=== PATIENT | female | born 1960 | race Caucasian/White ===

== ENCOUNTER 2016-06-06 06:27 | Day surgery (SDC) | payer BC, OTHER ==
[~2016-06-06 06:27] MED LIST: Buffered Lidocaine 1% SYR 3ML* 3 ML/SYR SYRINGE INTRADERM ONE
[2016-06-06] MEDS ORDERED: ceFAZolin 2 GM PREMIX (*) 2 GM/50 ML BAG IVPB ONE (06:41)
[2016-06-06] MEDS ORDERED: Bupivacaine 0.25% SDV* 30 ML ONE (07:16)
[2016-06-06] MEDS ORDERED: fentaNYL* 50 MCG/ML 2 ML VIAL (100 MCG VIAL) ONE (07:40)
[2016-06-06] MEDS ORDERED: Midazolam* 1 MG/ML 5 ML VIAL (5 MG) ONE (07:41)
[2016-06-06] MEDS ORDERED: Propofol* 10 MG/ML 20 ML BTL IV PUSH ONE (08:03)
[2016-06-06 09:27] VITALS: BP 114/68
== END 2016-06-06 09:22 | disposition home or self-care (01) ==
LOC: OREAST 06:27
PROVIDERS: ATTEND Plastic Surgery
DX: M65.312 Trigger thumb, left thumb (principal); Z88.2 Allergy status to sulfonamides
CPT/HCPCS: J0690; J2250; J2704; J3010

== ENCOUNTER 2016-07-31 16:56 | Emergency (ER) | payer BC ==
[2016-07-31 19:16] VITALS: BP 135/80
--- NOTE | 2016-07-31 19:46 | UC ---
Respiratory Complaint HPI - HPI Summary HPI Summary: few days of nasal congestion, scratchy throat and cough, no fevers---coughing so hard it hurts her lower back---no radiation in to legs - History of Current Complaint Chief Complaint: UCBackPain Stated Complaint: COUGH,CONGESTION Time Seen by Provider: 07/31/16 19:45 Hx Obtained From: Patient Hx Last Menstrual Period: 2 yrs ?: No Onset/Duration: Gradual Onset, Lasting Days, Still Present Timing: Constant Severity Initially: Moderate Severity Currently: Moderate Character: Cough: Nonproductive Aggravating Factors: Nothing Alleviating Factors: Nothing - has helped for the cough however naproxen/ flexeril or flexaril /ultram provides good relief Associated Signs And Symptoms: Positive: Nasal Congestion - Allergies/Home Medications Allergies/Adverse Reactions: Allergies Allergy/AdvReac Type Severity Reaction Status Date / Time Diatrizoate [From Renografin] Allergy Severe Anaphylatic Verified 07/31/16 19:16 Shock Sulfa Drugs Allergy Intermediate Itching Verified 07/31/16 19:16 Home Medications: Home Medications Acetaminophen [Acetaminophen Extra Stren] 1,000 mg PO DAILY 07/31/16 [History Confirmed 07/31/16] PMH/Surg Hx/FS Hx/Imm Hx Previously Healthy: No Endocrine History Of: 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 Denies: Thyroid Disease, Hyperthyroidism, Hypothyroidism Cardiovascular History Of: Reports: Hypertension Denies: Cardiac Disorders, Pacemaker/ICD, Congestive Heart Failure, Deep Vein Thrombosis Respiratory History Of: Reports: Pneumonia Denies: COPD, Asthma, Bronchitis, Pulmonary Embolism GI/ History Of: Denies: Ulcer, Gastrointestinal Bleed, Gall Bladder Disease, Kidney Stones Neurological History Of: Denies: TIA, CVA, Dementia, Seizures Comment Only: Migraine - HX, none recently since changed jobs Psychological History Of: Denies: Anxiety, Depression, Bipolar Disorder, Schizophrenia Cancer History Of: Denies: Lung Cancer Other History Of: Negative For: Anticoagulant Therapy - Surgical History Surgical History: Yes Surgery Procedure, Year, and Place: 2 C-SECTIONS ; 1991 TUBAL LIGATION;. TONSILLECTOMY AND ADENOIDS IN 1963;. LEFT FOREARM LACERATION - (AGE 17). Right thumb trigger release 2015 - Family History Known Family History: Positive: Hypertension - Social History Occupation: Employed Full-time Lives: With Family Alcohol Use: Rare Substance Use Type: None Smoking Status (MU): Former Smoker Type: Cigarettes Length of Time of Smoking/Using Tobacco: 2 years Have You Smoked in the Last Year: No When Did the Patient Quit Smoking/Using Tobacco: 03/31/1982 - Immunization History Most Recent Influenza Vaccination: [id number] Most Recent Tetanus Shot: within last 10 years Most Recent Pneumonia Vaccination: had in last 5 years Review of Systems Constitutional: Negative Skin: Negative Eyes: Negative ENT: Sore Throat, Nasal Discharge Respiratory: Cough Cardiovascular: Negative Gastrointestinal: Negative Genitourinary: Negative Motor: Negative Neurovascular: Negative Musculoskeletal: Myalgia - lumbar/sacral area of back--- Neurological: Negative Psychological: Negative All Other Systems Reviewed And Are Negative: Yes Physical Exam Triage Information Reviewed: Yes Appearance: Well-Appearing, No Pain Distress, Well-Nourished Vital Signs: Initial Vital Signs Temp 97.5 F 07/31/16 19:12 Pulse 72 07/31/16 19:12 Resp 18 07/31/16 19:12 BP 135/80 07/31/16 19:12 Pulse Ox 100 07/31/16 19:12 Vital Signs Reviewed: Yes Eye Exam: Normal Eyes: Positive: Conjunctiva Clear ENT Exam: Normal ENT: Positive: Normal ENT inspection, Hearing grossly normal, Pharynx normal, Nasal congestion, Nasal drainage, TMs normal. Negative: Tonsillar swelling, Tonsillar exudate, Trismus, Muffled/hoarse voice Dental Exam: Normal Neck exam: Normal Neck: Positive: Supple, Nontender Respiratory Exam: Normal Respiratory: Positive: Chest non-tender, Lungs clear, Normal breath sounds, No respiratory distress, No accessory muscle use Cardiovascular Exam: Normal Cardiovascular: Positive: Pulses Normal, Brisk Capillary Refill Abdomen Description: Negative: CVA Tenderness (R), CVA Tenderness (L) Musculoskeletal Exam: Normal Musculoskeletal: Positive: Strength Intact, No Edema, ROM Limited @ Neurological Exam: Normal Neurological: Positive: Alert, Muscle Tone Normal Psychological Exam: Normal Skin Exam: Normal UC Diagnostic Evaluation - Laboratory O2 Sat by Pulse Oximetry: 100 Respiratory Course/Dx - Course Course Of Treatment: 1. zyrtec, albuterol, flonase for respiratory sx, zithmax if sx worsen fever 2. flexeril, naproxen, ultram and exercoise for back Follow with Dr. Trinidad - Differential Dx/Diagnosis Differential Diagnosis/HQI/PQRI: Bronchitis, Lower Resp Infection, Sinusitis Provider Diagnoses: Allergic Rhinnitis, Bronchospastic cough, acute low back pain Discharge - Discharge Plan Condition: Stable Disposition: HOME Prescriptions: Albuterol HFA INHALER* [Ventolin HFA Inhaler*] 2 puff INH Q4H PRN #1 mdi PRN Reason: Cough Azithromycin TAB* [Zithromax TAB (Z-[place]) 250 mg #6 tabs] 2 tab PO SEE INSTRUCTIONS #1 [place] Cyclobenzaprine TAB* [Flexeril 10 MG TAB*] 10 mg PO TID PRN #30 tab PRN Reason: back pain Fluticasone NASAL SPRAY 50MCG* [Flonase NASAL SPRAY 50MCG*] 2 spray BOTH NARES DAILY #1 btl Patient Education Materials: Acute Low Back Pain (ED), Lower Back Exercises (ED ), Core Strengthening Exercises (ED), Acute Cough (ED), Allergic Rhinitis (ED) Referrals: Jadiel Trinidad MD [Primary Care Provider] - If Needed
== END 2016-07-31 19:49 | disposition home or self-care (01) ==
LOC: UCCORT 16:56
DX: J30.9 Allergic rhinitis, unspecified (principal); R05 Cough; M54.5 Low back pain; E11.9 Type 2 diabetes mellitus without complications; Z79.4 Long term (current) use of insulin; I10 Essential (primary) hypertension; Z88.2 Allergy status to sulfonamides; Z87.891 Personal history of nicotine dependence
CPT/HCPCS: 99212; G0463

== ENCOUNTER 2017-04-18 19:10 | Emergency (ER) | payer BC ==
[2017-04-18 20:06] VITALS: BP 129/60
[2017-04-18] MEDS ORDERED: Levalbuterol 0.63MG/3ML NEB* UNIT OF USE INH ONE (20:15)
--- NOTE | 2017-04-18 20:24 | UC ---
Respiratory Complaint HPI - HPI Summary HPI Summary: Pt presents with c/o cough, chest congestion and generalized malaise X 3-4 days. - History of Current Complaint Chief Complaint: UCRespiratory Stated Complaint: COUGH,CONGESTION Time Seen by Provider: 04/18/17 19:56 Hx Obtained From: Patient Hx Last Menstrual Period: 2 yrs ?: No Onset/Duration: Sudden Onset, Lasting Days, Still Present, Worse Since - onset Timing: Constant Severity Initially: Mild Severity Currently: Moderate Character: Cough: Nonproductive Aggravating Factors: Exertion, Deep Breaths, Recumbent Position Alleviating Factors: Nothing Associated Signs And Symptoms: Positive: Chills, Wheezing - Risk Factors Pulmonary Embolism Risk Factors: Negative Cardiac Risk Factors: Diabetes Pseudomonas Risk Factors: Negative Tuberculosis Risk Factors: Negative - Allergies/Home Medications Allergies/Adverse Reactions: Allergies Allergy/AdvReac Type Severity Reaction Status Date / Time Diatrizoate [From Renografin] Allergy Severe Anaphylatic Verified 04/18/17 19:59 Shock Iodinated Diagnostic Agents Allergy Severe Anaphylatic Verified 04/18/17 19:59 Shock Sulfa Drugs Allergy Intermediate Itching Verified 04/18/17 19:59 PMH/Surg Hx/FS Hx/Imm Hx Previously Healthy: Yes Endocrine History: Diabetes Other History Of: Negative For: Anticoagulant Therapy - Surgical History Surgical History: Yes Surgery Procedure, Year, and Place: 2 C-SECTIONS ; 1991 TUBAL LIGATION;. TONSILLECTOMY AND ADENOIDS IN 1963;. LEFT FOREARM LACERATION - (AGE 17). Right thumb trigger release 2016. eye surgery-12/2016 - Family History Known Family History: Positive: Hypertension - Social History Occupation: Employed Full-time Lives: With Family Alcohol Use: Rare Substance Use Type: None Smoking Status (MU): Former Smoker Type: Cigarettes Length of Time of Smoking/Using Tobacco: 2 years Have You Smoked in the Last Year: No When Did the Patient Quit Smoking/Using Tobacco: 03/31/1982 - Immunization History Most Recent Influenza Vaccination: [id number] Most Recent Tetanus Shot: within last 10 years Most Recent Pneumonia Vaccination: had in last 5 years Review of Systems Constitutional: Chills, Fatigue Skin: Negative Eyes: Negative ENT: Negative Respiratory: Shortness Of Breath, Cough Cardiovascular: Negative Gastrointestinal: Negative Genitourinary: Negative Motor: Negative Neurovascular: Negative Musculoskeletal: Myalgia Neurological: Negative Psychological: Negative Is Patient Immunocompromised?: No All Other Systems Reviewed And Are Negative: Yes Physical Exam Triage Information Reviewed: Yes Appearance: Ill-Appearing Vital Signs: Initial Vital Signs Temp 98.5 F 04/18/17 20:02 Pulse 81 04/18/17 20:02 Resp 20 04/18/17 20:02 BP 129/60 04/18/17 20:02 Pulse Ox 100 04/18/17 20:02 Vital Signs Reviewed: Yes Eye Exam: Normal ENT Exam: Normal Dental Exam: Normal Neck exam: Normal Respiratory Exam: Other Respiratory: Positive: Wheezing Cardiovascular Exam: Normal Musculoskeletal Exam: Normal Neurological Exam: Normal Psychological Exam: Normal Skin Exam: Normal UC Diagnostic Evaluation - Laboratory O2 Sat by Pulse Oximetry: 100 Respiratory Course/Dx - Differential Dx/Diagnosis Differential Diagnosis/HQI/PQRI: Bronchitis, Other - pneumonia Provider Diagnoses: Influenza A. Bronchitis Discharge - Discharge Plan Condition: Stable Disposition: HOME Patient Education Materials: Influenza (ED), Acute Bronchitis (ED) Referrals: Jadiel Trinidad MD [Primary Care Provider] -
[2017-04-18] MEDS ORDERED: Azithromycin TAB* 250 MG PO ONE (20:32)
[2017-04-18] MEDS ORDERED: Oseltamivir CAP* 75 MG PO ONE (20:32)
[2017-04-18] MEDS ORDERED: Benzonatate CAP* 100 MG PO ONE (20:32)
--- NOTE | 2017-04-18 20:42 | RAD ---
INDICATION: Cough, shortness of breath and fatigue COMPARISON: Chest x-ray dated February 16, 2015 TECHNIQUE: PA and lateral views of the chest were obtained. FINDINGS: The heart and mediastinum are normal in size and contour. The lungs are grossly clear. There is no evidence of large pleural effusion. Visualized bones are normal for the patient's age. There is no radiographic evidence of free air beneath the diaphragm IMPRESSION: No radiographic evidence of acute cardiopulmonary disease.
== END 2017-04-18 21:15 | disposition home or self-care (01) ==
LOC: UCCORT 19:10
DX: J10.1 Influenza due to other identified influenza virus with other respiratory manifestations (principal); J40 Bronchitis, not specified as acute or chronic; E11.9 Type 2 diabetes mellitus without complications; R11.0 Nausea; Z88.8 Allergy status to other drugs, medicaments and biological substances; Z88.2 Allergy status to sulfonamides; Z91.041 Radiographic dye allergy status; Z87.891 Personal history of nicotine dependence
CPT/HCPCS: 71046; 87502; 99213; A9270-GY; G0463; J7614

== ENCOUNTER 2017-07-27 07:12 | Emergency (ER) | payer BC ==
[2017-07-27 07:26] VITALS: BP 164/78
--- NOTE | 2017-07-27 07:28 | UC ---
FLU HPI - HPI Summary HPI Summary: C/O Flu symptoms x 2 days with sore throat, headache, body aches, chills, cough with wheezing. Had Flu A earlier this season. - History of Current Complaint Stated Complaint: FLU SYMPTOMS Time Seen by Provider: 07/27/17 07:21 Hx Obtained From: Patient Hx Last Menstrual Period: 2 yrs ?: No Onset/Duration: Sudden Onset, Lasting Days - 2, Worse Since - onset Severity Currently: Severe Severity Initially: Moderate Associated Signs & Symptoms: Positive: Fever, Myalgia, Cough, Sore Throat, Nasal Congestion, Headache Related Hx: Possible Flu/Infectious Exposure - Risk Factors Influenza Risk Factors: Chronic Medical or Immunosuppresive Condition - Diabetes and chronic kidney disease - Allergy/Home Medications Allergies/Adverse Reactions: Allergies Allergy/AdvReac Type Severity Reaction Status Date / Time diatrizoate meglumine Allergy Anaphylatic Verified 07/27/17 07:17 [From Renografin-60] Shock diatrizoate sodium Allergy Anaphylatic Verified 07/27/17 07:17 [From Renografin-60] Shock Iodinated Contrast- Oral and Allergy Anaphylatic Verified 07/27/17 07:17 IV Dye Shock Sulfa (Sulfonamide Allergy Itching Verified 07/27/17 07:17 Antibiotics) Home Medications: Home Medications Loratadine 10 mg PO DAILY 07/27/17 [History Confirmed 07/27/17] PMH/Surg Hx/FS Hx/Imm Hx Endocrine History: Diabetes Cardiovascular History: Hypertension Other History Of: Negative For: Anticoagulant Therapy - Surgical History Surgical History: Yes Surgery Procedure, Year, and Place: 2 C-SECTIONS ; 1991 TUBAL LIGATION;. TONSILLECTOMY AND ADENOIDS IN 1963;. LEFT FOREARM LACERATION - (AGE 17). Right thumb trigger release 2016. eye surgery-12/2016 - Family History Known Family History: Positive: Hypertension Negative: Cardiac Disease, Diabetes - Social History Occupation: Employed Full-time Lives: With Family Alcohol Use: Rare Substance Use Type: None Smoking Status (MU): Former Smoker Type: Cigarettes Length of Time of Smoking/Using Tobacco: 2 years Have You Smoked in the Last Year: No When Did the Patient Quit Smoking/Using Tobacco: 03/31/1982 - Immunization History Most Recent Influenza Vaccination: [id number] Most Recent Tetanus Shot: within last 10 years Most Recent Pneumonia Vaccination: had in last 5 years Review of Systems Constitutional: Fever, Chills ENT: Sore Throat, Sinus Congestion, Sinus Pain/Tenderness Respiratory: Cough Gastrointestinal: Nausea Is Patient Immunocompromised?: Yes - Diabetes All Other Systems Reviewed And Are Negative: Yes Physical Exam Triage Information Reviewed: Yes Appearance: No Pain Distress, Well-Nourished, Ill-Appearing Vital Signs Reviewed: Yes Eyes: Positive: Conjunctiva Inflamed ENT: Positive: Pharynx normal, Nasal congestion, TMs normal Dental Exam: Normal Neck exam: Normal Respiratory: Positive: Wheezing - expiratory wheeze with coughing. Negative: Crackles Cardiovascular Exam: Normal Musculoskeletal Exam: Normal Neurological Exam: Normal Psychological Exam: Normal Skin Exam: Normal Flu Course/Dx - Differential Dx/Diagnosis Differential Diagnosis/HQI/PQRI: Bronchitis, Influenza, RSV, Upper Respiratory Infection Provider Diagnoses: Acute URI. Acute bronchospasm. Hypertension Discharge - Sign-Out/Discharge Documenting (check all that apply): Discharge/Admit/Transfer - Discharge Plan Condition: Stable Disposition: HOME Prescriptions: Albuterol HFA INHALER* [Ventolin HFA Inhaler*] 2 puff INH Q4H PRN #1 mdi PRN Reason: Wheezing predniSONE TAB* [Deltasone TAB*] 20 mg PO DAILY #18 tab Patient Education Materials: Upper Respiratory Infection (ED), Wheezing (ED), Prednisone (By mouth) Referrals: Jadiel Trinidad MD [Primary Care Provider] - Additional Instructions: NASAL SPRAYS AND DROPS: Afrin in the PUMP/ MIST bottle (Get generic 12 hours nasal decongestant spray). Tilt your head down and look at the floor while doing a strong sniff with the spray. Decongestant nasal sprays and drops often give dramatic relief from congestion. They are often recommended for patients with sinus infection to assist with sinus drainage. Persons with high blood pressure should consult the doctor before using these nasal sprays. Afrin and Mando-Synephrine are common joou-ipz-fhiodha preparations. They should not be used for more than five days, as "rebound" congestion can occur - - the congestion flares as the drug wears off. A way of dealing with this rebound congestion problem is to medicate only one nostril each time, allowing the other nostril to recover from the medicine' s effects. When you no longer need the drug during the day, spray only one nostril each night. This helps you sleep well without severe rebound congestion. Call the doctor if you develop severe headache, palpitations, or chest pain. Metacafe SINUS RINSE: CHECK OUT AT [facility] Saline nasal wash helps with mucous, allergies and congestion. It can be used up to twice a day or only as needed. Use lukewarm tap water. It does not have to be sterilized or distilled water. Do 1/3 on each side and snort out of both nostrils. Repeat the process with 1/6 of the bottle on each side with snorting in between to finish the solution in the bottle - Billing Disposition and Condition Condition: STABLE Disposition: HOME
== END 2017-07-27 07:55 | disposition home or self-care (01) ==
LOC: UCCORT 07:12
DX: J06.9 Acute upper respiratory infection, unspecified (principal); J98.01 Acute bronchospasm; I10 Essential (primary) hypertension; Z87.891 Personal history of nicotine dependence; Z88.8 Allergy status to other drugs, medicaments and biological substances; Z88.2 Allergy status to sulfonamides; Z91.041 Radiographic dye allergy status
CPT/HCPCS: 87502; 99212; G0463

== ENCOUNTER 2017-08-01 18:45 | Emergency (ER) | payer BC ==
[2017-08-01 19:56] VITALS: BP 128/70
--- NOTE | 2017-08-01 21:07 | UC ---
Respiratory Complaint HPI - HPI Summary HPI Summary: Brenda seen last week for resp distress and cough. she has been suing xoponex neb w/ good help but still has very significant cough w/ wheezing. she did not take the prscribed prednisone b/c she had DKA on 2 occasions from taking prednisone in past (has type I DM). sugars have been stable recently. she is not on steroid inhaler but she is interested after discussing today. - History of Current Complaint Chief Complaint: UCRespiratory Stated Complaint: RESPIRATORY Time Seen by Provider: 08/01/17 20:47 Hx Last Menstrual Period: 2 yrs Pain Intensity: 0 - Allergies/Home Medications Allergies/Adverse Reactions: Allergies Allergy/AdvReac Type Severity Reaction Status Date / Time diatrizoate meglumine Allergy Anaphylatic Verified 07/27/17 07:17 [From Renografin-60] Shock diatrizoate sodium Allergy Anaphylatic Verified 07/27/17 07:17 [From Renografin-60] Shock Iodinated Contrast- Oral and Allergy Anaphylatic Verified 07/27/17 07:17 IV Dye Shock Sulfa (Sulfonamide Allergy Itching Verified 07/27/17 07:17 Antibiotics) PMH/Surg Hx/FS Hx/Imm Hx Endocrine History: Diabetes Cardiovascular History: Hypertension Respiratory History: Bronchitis Other History Of: Negative For: Anticoagulant Therapy - Surgical History Surgical History: Yes Surgery Procedure, Year, and Place: 2 C-SECTIONS ; 1991 TUBAL LIGATION;. TONSILLECTOMY AND ADENOIDS IN 1963;. LEFT FOREARM LACERATION - (AGE 17). Right thumb trigger release 2016. LEFT THUMB TRIGGER RELEASE 2017. LEFT eye VICTRECTOMY-12/2016. BILATERAL CATARACTS 2018. RIGHT EYE VICTRECTOMY 2018 - Family History Known Family History: Positive: Hypertension Negative: Cardiac Disease, Diabetes - Social History Alcohol Use: Rare Substance Use Type: None Smoking Status (MU): Former Smoker Type: Cigarettes Length of Time of Smoking/Using Tobacco: 2 years Have You Smoked in the Last Year: No When Did the Patient Quit Smoking/Using Tobacco: 03/31/1982 - Immunization History Most Recent Influenza Vaccination: [id number] Most Recent Tetanus Shot: within last 10 years Most Recent Pneumonia Vaccination: had in last 5 years Review of Systems Constitutional: Negative Skin: Negative Eyes: Negative ENT: Negative Respiratory: Cough - severe Cardiovascular: Negative Gastrointestinal: Negative Genitourinary: Negative Motor: Negative Neurovascular: Negative Musculoskeletal: Negative Neurological: Negative Psychological: Negative Is Patient Immunocompromised?: No All Other Systems Reviewed And Are Negative: Yes Physical Exam Triage Information Reviewed: Yes Appearance: Well-Appearing, No Pain Distress, Well-Nourished - she has severe enough cough that she can be heard quite loudly across the buidling. Vital Signs: Initial Vital Signs Temp 98.2 F 08/01/17 19:45 Pulse 92 08/01/17 19:45 Resp 18 08/01/17 19:45 BP 128/70 08/01/17 19:45 Pulse Ox 100 08/01/17 19:45 Vital Signs Reviewed: Yes Eye Exam: Normal ENT Exam: Normal ENT: Positive: Pharynx normal, TMs normal Neck exam: Normal Neck: Positive: Supple, Nontender, No Lymphadenopathy Respiratory: Positive: No respiratory distress, No accessory muscle use, Decreased breath sounds - mild thoughout, Wheezing - ? mild. Negative: Crackles , Rhonchi, Stridor Cardiovascular Exam: Normal Cardiovascular: Positive: RRR Musculoskeletal Exam: Normal Neurological Exam: Normal Psychological Exam: Normal Skin Exam: Normal UC Diagnostic Evaluation - Laboratory O2 Sat by Pulse Oximetry: 100 Respiratory Course/Dx - Course Course Of Treatment: pesistent bronchitis w/ severe cough. unable to take oral pred. she is willing to try lower dose steroid inahler. she is very agreeable to checking BSs very closley and stop immediately with elevaetd readings. risne mouth. -tessalon perles. cont w/ xoponex. - Differential Dx/Diagnosis Differential Diagnosis/HQI/PQRI: Asthma, Bronchitis, Sinusitis Provider Diagnoses: Bronchitis Discharge - Sign-Out/Discharge Documenting (check all that apply): Post-Discharge Follow Up - Discharge Plan Condition: Stable Disposition: HOME Prescriptions: Benzonatate CAP* [Tessalon 100 MG CAP*] 100 mg PO TID PRN #30 cap PRN Reason: Cough Budesonide/Formote 80/4.5(NF) [Symbicort 80/4.5 (NF)] 1 puff INH BID #1 mdi Levalbuterol 0.63MG/3ML NEB* [Xopenex 0.63MG/3ML NEB*] 0.63 mg INH Q4H PRN #1 box PRN Reason: Sob/Wheezing Patient Education Materials: Acute Bronchitis (ED) Referrals: Law,Jadiel, MD [Primary Care Provider] - Additional Instructions: -Make sure to watch your blood sugars very closely with the steroid inhaler. stop it immediately at any sign of increase. Rinse your mouth out well after use. - Billing Disposition and Condition Condition: STABLE Disposition: HOME
== END 2017-08-01 21:45 | disposition home or self-care (01) ==
LOC: UCCORT 18:45
DX: J40 Bronchitis, not specified as acute or chronic (principal); E11.9 Type 2 diabetes mellitus without complications; Z96.41 Presence of insulin pump (external) (internal); I10 Essential (primary) hypertension; Z87.891 Personal history of nicotine dependence; Z88.2 Allergy status to sulfonamides; Z88.8 Allergy status to other drugs, medicaments and biological substances; Z91.041 Radiographic dye allergy status
CPT/HCPCS: 99212; G0463

== ENCOUNTER 2018-03-06 14:02 | Emergency (ER) | payer BC ==
[2018-03-06] MEDS ORDERED: Triamcinolone Acetonide* 40 MG/ML 1 ML VIAL IM ONE (14:37)
[2018-03-06 14:38] VITALS: BP 139/66
[2018-03-06] MEDS ORDERED: Lidocaine 1%* 5 ML VIAL INJ ONE (14:39)
--- NOTE | 2018-03-06 14:54 | UC ---
Elbow Pain - HPI Summary HPI Summary: right elbow pain x 5 days pain is a the lateral side of the elbow , + injury as her dog pulled on the leash , hx of tennis elbow - History of Current Complaint Chief Complaint: UCUpperExtremity Stated Complaint: RIGHT ELBOW PAIN Time Seen by Provider: 03/06/18 14:17 Hx Obtained From: Patient Hx Last Menstrual Period: 2 yrs Onset/Duration: Days - 5 Severity Initially: Moderate Severity Currently: Moderate Pain Intensity: 3 Location Of Pain: Is Discrete @ - right elbow Character: Aching, Throbbing Aggravating Factor(s): Movement Alleviating Factor(s): Rest, Ice Associated Signs And Symptoms: Positive: Weakness. Negative: Swelling, Redness , Bruising, Fever, Numbness/Tingling Related History: Similar Episode/Dx as - tennis elbow - Allergies/Home Medications Allergies/Adverse Reactions: Allergies Allergy/AdvReac Type Severity Reaction Status Date / Time diatrizoate meglumine Allergy Anaphylatic Verified 03/06/18 14:31 [From Renografin-60] Shock diatrizoate sodium Allergy Anaphylatic Verified 03/06/18 14:31 [From Renografin-60] Shock Iodinated Contrast- Oral and Allergy Anaphylatic Verified 03/06/18 14:31 IV Dye Shock Sulfa (Sulfonamide Allergy Itching Verified 03/06/18 14:31 Antibiotics) Home Medications: Home Medications Irbesartan (NF) [Avapro (NF)] 150 mg PO DAILY 03/06/18 [History Confirmed ] PMH/Surg Hx/FS Hx/Imm Hx Endocrine History: Diabetes Cardiovascular History: Hypertension Other History Of: Negative For: Anticoagulant Therapy - Surgical History Surgical History: Yes Surgery Procedure, Year, and Place: 2 C-SECTIONS ; 1991 TUBAL LIGATION;. TONSILLECTOMY AND ADENOIDS IN 1963;. LEFT FOREARM LACERATION - (AGE 17). Right thumb trigger release 2016. LEFT THUMB TRIGGER RELEASE 2017. LEFT eye VICTRECTOMY-12/2016. BILATERAL CATARACTS 2018. RIGHT EYE VICTRECTOMY 2018 - Family History Known Family History: Positive: Hypertension Negative: Cardiac Disease, Diabetes - Social History Alcohol Use: Rare Substance Use Type: None Smoking Status (MU): Former Smoker Type: Cigarettes Length of Time of Smoking/Using Tobacco: 2 years Have You Smoked in the Last Year: No When Did the Patient Quit Smoking/Using Tobacco: 03/31/1982 - Immunization History Most Recent Influenza Vaccination: [id number] Most Recent Tetanus Shot: within last 10 years Most Recent Pneumonia Vaccination: had in last 5 years Review of Systems All Other Systems Reviewed And Are Negative: Yes Constitutional: Positive: Negative Skin: Positive: Negative Eyes: Positive: Negative ENT: Positive: Negative Respiratory: Positive: Negative Is Patient Immunocompromised?: No Physical Exam Triage Information Reviewed: Yes Appearance: Well-Appearing, No Pain Distress, Well-Nourished Vital Signs: Initial Vital Signs Temp 98 F 03/06/18 14:30 Pulse 82 03/06/18 14:30 Resp 16 03/06/18 14:30 BP 139/66 03/06/18 14:30 Pulse Ox 100 03/06/18 14:30 Vital Signs Reviewed: Yes Eye Exam: Normal Eyes: Positive: Conjunctiva Clear ENT: Positive: Normal ENT inspection Neck exam: Normal Neck: Positive: Supple Respiratory: Positive: Chest non-tender, Lungs clear, Normal breath sounds Cardiovascular: Positive: RRR, No Murmur, Pulses Normal Musculoskeletal: Positive: Other: - right elbow : no swelling, no erythema, tenderness lateral elbow , goot ROM Skin Exam: Normal Procedures - Procedure Summary Procedure Summary: steroid injection right lateral elbow the area was cleaned with alcohol pads 40 mg kenelog + 5 ml 1 % lidocaine mixture injected to the lateral right elbow pt. tolerated the procedure will, no bleeding Elbow Pain Course/Dx - Differential Dx/Diagnosis Provider Diagnosis: Lateral epicondylitis Discharge - Sign-Out/Discharge Documenting (check all that apply): Patient Departure All imaging exams completed and their final reports reviewed: No Studies - Discharge Plan Condition: Stable Disposition: HOME Patient Education Materials: Tennis Elbow (ED) Referrals: Jadiel Trinidad MD [Primary Care Provider] - 2 Weeks - Billing Disposition and Condition Condition: STABLE Disposition: Home
== END 2018-03-06 15:08 | disposition home or self-care (01) ==
LOC: UCCORT 14:02
DX: M77.11 Lateral epicondylitis, right elbow (principal); Y93.K1 Activity, walking an animal; Z88.2 Allergy status to sulfonamides; Z91.041 Radiographic dye allergy status; I10 Essential (primary) hypertension; E11.9 Type 2 diabetes mellitus without complications; Z87.891 Personal history of nicotine dependence
CPT/HCPCS: 99211; G0463; J3301

== ENCOUNTER 2019-04-06 05:54 | Day surgery (SDC) | payer BC ==
[~2019-04-06 05:54] MED LIST changes: -Buffered Lidocaine 1% SYR 3ML* 3 ML/SYR SYRINGE INTRADERM ONE; +Buffered Lidocaine 1% SYRIN* 1 ML/SYRINGE INTRADERM ONE
[2019-04-06] MEDS ORDERED: DiMENhydriNATE IV* 50 MG/ML VIAL IV PUSH ONE (06:00)
[2019-04-06] MEDS ORDERED: Lactated Ringers 1000 ML Bag* 1,000 ML IV SCH (06:00)
[2019-04-06] MEDS ORDERED: Famotidine IV* 10 MG/ML 2 ML (20 mg) IV ONE (06:00)
[2019-04-06] MEDS ORDERED: Famotidine IV* 10 MG/ML 2 ML (20 mg) ONE (06:09)
[2019-04-06] MEDS ORDERED: ceFAZolin 2 GM in NS PREMIX(*) 2 GM/100 ML BAG IVPB ONE (06:09)
[2019-04-06] MEDS ORDERED: DiMENhydriNATE IV* 50 MG/ML VIAL ONE (06:09)
[2019-04-06] MEDS ORDERED: Midazolam* 1 MG/ML 5 ML VIAL (5 MG) ONE (07:03)
[2019-04-06] MEDS ORDERED: fentaNYL* 50 MCG/ML 2 ML VIAL (100 MCG VIAL) ONE (07:03)
[2019-04-06] MEDS ORDERED: Lidocaine 2% PF * 5 ML VIAL ONE (07:03)
[2019-04-06] MEDS ORDERED: Propofol* 10 MG/ML 20 ML BTL ONE (07:03)
[2019-04-06] MEDS ORDERED: Bupivacaine 0.25% SDV* 30 ML ONE (07:10)
[2019-04-06] MEDS ORDERED: Ketorolac INJ* 30 MG/ML 1 ML VIAL IV PRN (07:26)
[2019-04-06] MEDS ORDERED: Naloxone* 0.4 MG/ML 1 ML VIAL IV PRN (07:26)
[2019-04-06] MEDS ORDERED: oxyCODONE/Acetamin 5/325 MG* TAB PO PRN (07:26)
[2019-04-06] MEDS ORDERED: fentaNYL* 50 MCG/ML 2 ML VIAL (100 MCG VIAL) IV PRN (07:26)
[2019-04-06] MEDS ORDERED: HYDROcodone/ACETAMIN 5-325 MG* 1 TAB PO PRN (07:26)
[2019-04-06] MEDS ORDERED: Ondansetron INJ* 2 MG/ML VIAL IV PRN (07:26)
[2019-04-06] MEDS ORDERED: Acetaminophen TAB* 325 MG PO PRN (07:26)
[2019-04-06 08:48] VITALS: BP 148/74
== END 2019-04-06 09:00 | disposition home or self-care (01) ==
LOC: OR 05:54
PROVIDERS: ATTEND Plastic Surgery
DX: M65.332 Trigger finger, left middle finger (principal); I10 Essential (primary) hypertension; E11.9 Type 2 diabetes mellitus without complications; Z79.4 Long term (current) use of insulin; Z87.891 Personal history of nicotine dependence
CPT/HCPCS: J0690; J1240; J2250; J2704; J3010; J3490